=== PATIENT | female | born 1990 | race Caucasian/White ===

== ENCOUNTER 2018-02-20 11:48 | Emergency (ER) | payer BC, OTHER ==
[2018-02-20 12:28] VITALS: BP 110/61; PULSE 85; RESP 16; TEMP 98.3
[2018-02-20] MEDS ORDERED: LIDOCAINE 1% INJ 10MG/ML (20 ML MDV) SQ ONE (12:42)
--- NOTE | 2018-02-20 12:42 | ED ---
Wound/Laceration HPI - General Chief Complaint: Wound/Laceration Stated Complaint: [facility]-Arm Lac Time Seen by Provider: 02/20/18 12:29 Source: patient, RN notes reviewed Mode of arrival: ambulatory Limitations: no limitations - History of Present Illness Initial Comments: This is a 27-year-old female who presents to the emergency department with chief complaint of work-related left forearm laceration. Patient states that at approximately 11:15 this morning a steel tube lacerated her left forearm. Reports normal range of motion and sensation. Denies any other injuries or trauma. States she is fully up-to-date with vaccinations including tetanus. Denies fevers or chills, chest pain shortness of breath, abdominal pain, nausea or vomiting, numbness or tingling. - Related Data Home Medications Medication Instructions Recorded Confirmed Pnv,Calcium 72/Iron/Folic Acid 1 tab PO DAILY 12/16/14 12/16/14 [Preplus Ca-Fe 27 mg-FA 1 mg Tb] valACYclovir HCL [valACYclovir] 1,000 mg PO DIRECTED 12/16/14 12/16/14 Allergies Allergy/AdvReac Type Severity Reaction Status Date / Time No Known Allergies Allergy Verified 02/20/18 12:28 Review of Systems ROS Statement: Those systems with pertinent positive or pertinent negative responses have been documented in the HPI. ROS Other: All systems not noted in ROS Statement are negative. Past Medical History Past Medical History: No Reported History Additional Past Medical History / Comment(s): Herpes simplex History of Any Multi-Drug Resistant Organisms: MRSA Date of last positivie culture/infection: 2004 MDRO Source:: on right buttock Past Surgical History: Tubal Ligation Additional Past Surgical History / Comment(s): d&c-2007, colp-2012, wisdom teeth Past Anesthesia/Blood Transfusion Reactions: No Reported Reaction Past Psychological History: No Psychological Hx Reported Smoking Status: Current every day smoker Past Alcohol Use History: Occasional Past Drug Use History: None Reported - Past Family History Father Family Medical History: Cancer, CVA/TIA, Hypertension Additional Family Medical History / Comment(s): lung cancer General Exam - General Exam Comments Initial Comments: General: Awake and alert, well-developed; in no apparent distress. HEENT: Head atraumatic, normocephalic. Pupils are equal, round and reactive to light. Extraocular movements intact. Oropharynx moist without erythema or exudate. Neck: Supple. Normal ROM. Cardiovascular: Regular rate and rhythm. No murmurs, rubs or gallops. Chest symmetrical. Respiratory: Lungs clear to auscultation bilaterally. No wheezes, rales or rhonchi. Normal respiratory effort with no use of accessory muscles. Musculoskeletal: Normal ROM, no tenderness bilateral upper and lower extremities. Skin: Approximately 2.0 cm linear laceration ventral surface mid left forearm. No active bleeding. Neurological: Alert and oriented x3. CN II-XII grossly intact. Speech is fluent and answers are appropriate. No focal neuro deficits. Psychiatric: Normal mood and affect. No overt signs of depression or anxiety noted. Limitations: no limitations Course Vital Signs 02/20/18 12:26 Temperature 98.3 F Pulse Rate 85 Respiratory 16 Rate Blood Pressure 110/61 O2 Sat by Pulse 96 Oximetry Procedures - Laceration Laceration #1 Consent Obtained: verbal consent Indication: laceration Site: upper extremity (left ventral mid-forearm) Size (cm): 2 Description: linear Depth: simple, single layer Anesthetic Used: lidocaine 1% Anesthesia Technique: local infiltration Amount (mls): 2 Pre-repair: wound explored, irrigated extensively, deep structures intact Type of Sutures: nylon Size of Sutures: 4-0 Number of Sutures: 3 Technique: simple, interrupted Patient Tolerated Procedure: well, no complications Medical Decision Making - Medical Decision Making This is a 27-year-old female who presents to the emergency department with chief complaint of left forearm laceration. She sustained an approximately 2.0 cm linear laceration to the left mid forearm. 3 sutures were placed and patient tolerated well without complication. X-ray of the left forearm revealed no acute fractures, dislocations or radiopaque foreign bodies. Patient is neurovascularly intact. She is up-to-date with all vaccinations including tetanus. Vitals are stable and she is in no acute distress. She will be discharged home at this time. Recommended removal of sutures in 10-14 days. She is in agreement with plan and voices understanding. All questions answered. - Radiology Data Radiology results: report reviewed, image reviewed X-ray left forearm impression: Soft tissue laceration of the left forearm with no acute fracture or dislocation seen in the left radius or ulna. No radiopaque foreign body is seen. Disposition Clinical Impression: Forearm laceration Disposition: HOME SELF-CARE Condition: Good Instructions: Laceration (ED), Care For Your Stitches (ED) Additional Instructions: Please have sutures removed in 10-14 days. Please follow up with primary care provider within 1-2 days. Return to emergency department if symptoms should worsen or any concerns arise. Is patient prescribed a controlled substance at d/c from ED?: No Referrals: Jose Juan Mccartney MD [Primary Care Provider] - 1-2 days Time of Disposition: 13:17
--- NOTE | 2018-02-20 13:12 | XR ---
EXAMINATION TYPE: XR forearm LT DATE OF EXAM: 02/20/2018 CLINICAL HISTORY: Left anterior mid forearm laceration TECHNIQUE: Two views of the left forearm are obtained. COMPARISON: None. FINDINGS: Focal soft tissue laceration seen superficially of the overlying the proximal diaphysis of the left radius and ulna. No radiopaque foreign body is seen. There is no acute fracture or dislocati on seen in the left radius or ulna. There is incidental note of negative ulnar variance. The left el bow and wrist joints appear within normal limits. The overlying soft tissue appears within normal li mits. IMPRESSION: Soft tissue laceration of the left forearm with no acute fracture or dislocation seen in the left radius or ulna. No radiopaque foreign body is seen.
== END 2018-02-20 13:25 | disposition home or self-care (01) ==
LOC: EC 11:48
DX: S51.812A Laceration without foreign body of left forearm, initial encounter (principal); F17.200 Nicotine dependence, unspecified, uncomplicated; Z86.14 Personal history of Methicillin resistant Staphylococcus aureus infection; Z86.19 Personal history of other infectious and parasitic diseases; W45.8XXA Other foreign body or object entering through skin, initial encounter; Y92.69 Other specified industrial and construction area as the place of occurrence of the external cause; Y99.0 Civilian activity done for income or pay
CPT/HCPCS: 73090; 99283; 12001; J2001

== ENCOUNTER → 2023-03-24 | Outpatient (CLI) | payer BC ==
--- NOTE | 2023-03-24 10:31 | CA ---
Transthoracic Echo Report Name: Constanza Brown Age: 32 Gender: F : 1990 Exam Date: 03/24/2023 08:36 Exam Location: [facility] Ht (in): 62 Wt (lb): 110 Ordering Physician: Jose Juan Mccartney MD Attending/Referring Phys: Destinee Vizcarra PAC Geothermal Technician Tierra Nguyen RDCS Procedure CPT: Indications: Z82.41 family hstry sdn cardiac and R94.31 Cardiac Hx: Technical Quality: Good Contrast 1: Total Dose (mL): Contrast 2: Total Dose (mL): MEASUREMENTS (Male / Female) Normal Values 2D ECHO LV Diastolic Diameter PLAX 4.0 cm 4.2 - 5.9 / 3.9 - 5.3 cm LV Systolic Diameter PLAX 2.8 cm IVS Diastolic Thickness 0.8 cm 0.6 - 1.0 / 0.6 - 0.9 cm LVPW Diastolic Thickness 0.9 cm 0.6 - 1.0 / 0.6 - 0.9 cm LV Relative Wall Thickness 0.4 RV Internal Dim ED PLAX 2.1 cm LA Systolic Diameter LX 2.6 cm 3.0 - 4.0 / 2.7 - 3.8 cm LA Volume 25.7 cm??? 18 - 58 / 22 - 52 cm??? M-MODE Aortic Root Diameter MM 2.8 cm MV E Point Septal Separation 0.4 cm AV Cusp Separation MM 2.1 cm DOPPLER AV Peak Velocity 123.2 cm/s AV Peak Gradient 6.1 mmHg MV Area PHT 3.6 cm??? Mitral E Point Velocity 85.2 cm/s Mitral A Point Velocity 60.5 cm/s Mitral E to A Ratio 1.4 MV Deceleration Time 210.1 ms MV E' Velocity 13.5 cm/s Mitral E to MV E' Ratio 6.3 TR Peak Velocity 208.1 cm/s TR Peak Gradient 17.3 mmHg Right Ventricular Systolic Press 21.8 mmHg FINDINGS Left Ventricle Left ventricular ejection fraction is estimated at 55-60 %. Left ventricular cavity size normal. Left ventricular wall thickness normal.normal left ventricular wall motion. Right Ventricle Normal right ventricular size. Right ventricular systolic pressure within normal limits. Right Atrium Normal right atrial size. Positive agitated saline bubble study for right to left shunt. Left to right shunting by color through a PFO. Aneurysmal intra- atrial septum Left Atrium Normal left atrial size. Mitral Valve Structurally normal mitral valve. Trace mitral regurgitation. Aortic Valve Trileaflet aortic valve. No aortic valve stenosis or regurgitation. Tricuspid Valve Structurally normal tricuspid valve. Mild tricuspid regurgitation. Pulmonic Valve Pulmonic valve not well visualized. Pericardium No pericardial effusion. Aorta Normal size aortic root and proximal ascending aorta. CONCLUSIONS 1. Normal left ventricle size and systolic function 2. Aneurysmal intra-atrial septum with bidirectional flow was color and bubble study through PFO 3. Mild tricuspid regurgitation with no evidence of pulmonary hypertension Previewed by: Dr. Meryl Holt MD (Electronically Signed) Final Date: 24 March 2023 10:31
== END | disposition home or self-care (01) ==
LOC: RADECHMAIN 08:23
PROVIDERS: ATTEND Pediatrics
DX: I08.1 Rheumatic disorders of both mitral and tricuspid valves (principal); I25.3 Aneurysm of heart; R94.31 Abnormal electrocardiogram [ECG] [EKG]; Z82.41 Family history of sudden cardiac death
CPT/HCPCS: 93306